=== PATIENT | male | born 1955 | race Caucasian/White ===

== ENCOUNTER 2024-03-13 12:28 | Emergency (ER) | payer OTHER, SELFPAY ==
[~2024-03-13 12:28] MED LIST: Iopamidol 300 61% 100 ML VIAL FS ONE
[2024-03-13 13:23] LABS: #Basophils 0.07 10x3/uL (0.0-0.2); #Eosinophils 0.02 10x3/uL (0.0-0.5); #Neutrophils 5.69 10x3/uL (1.5-8.4); %Basophils 0.9 % (0.0-2.0); %Eosinophils 0.3 % (0.0-6.0); %Lymphocytes 17.9 % (18.0-47.0); %Monocytes 6.5 % (0.0-10.0); %Neutrophils 74.1 % (40.0-75.0); Hematocrit 50.9 % (38.8-50.0); Mean Corpuscular HGB CONC 33.4 g/dL (32.0-36.0); Mean Corpuscular Hemoglobin 33.6 pg (27.0-33.0); Mean Corpuscular Volume 100.6 fL (81.2-95.1); Mean Platelet Volume 8.9 fL (7.4-10.4); Platelet Count 242 10x3/uL (150-450); RBC Distribution Width 14.1 % (11.5-14.5); Red Blood Cell (RBC) Count 5.06 10x6/uL (4.32-5.72); White Blood Cell (WBC) Count 7.7 10x3/uL (3.5-10.5)
[2024-03-13 13:39] LABS: ALT (SGPT) 22 U/L (8-55); AST (SGOT) 22 U/L (5-34); Albumin 3.2 g/dL (3.4-4.8); Alkaline Phosphatase 59 U/L (40-110); Anion Gap 17 mmol/L (10-20); BUN (Urea Nitrogen) 18 mg/dL (8.4-25.7); Bilirubin, Total 0.6 mg/dL (0.2-1.2); Calc. Creatinine Clearance 0 mL/min (70-130); Calcium 9.7 mg/dL (7.8-10.44); Carbon Dioxide 26 mmol/L (23-31); Chloride 103 mmol/L (98-107); Estimated GFR 71; Globulin 4.6 g/dL (2.4-3.5); Glucose 203 mg/dL (80-115); Potassium 4.4 mmol/L (3.5-5.1); Protein, Total 7.8 g/dL (5.8-8.1); Sodium 142 mmol/L (136-145)
[2024-03-13] MEDS ORDERED: Etomidate 40 MG (20 mL) VIAL ONE (14:35)
[2024-03-13] MEDS ORDERED: Ketamine 50 MG/ML (10ML VIAL) ONE (15:08)
[2024-03-13] MEDS ORDERED: Piperacillin/Tazobactam 4.5 GM VIAL ONE (16:58)
[2024-03-13 17:44] LABS: Troponin I 0.021 ng/mL (< 0.028)
[2024-03-13] MEDS ORDERED: Ipratropium/Albuterol 3 ML NEB ONE (20:25)
[2024-03-13] MEDS ORDERED: methylPREDNISolone Sod Succ/PF 125 MG/2 ML VIAL ONE (20:26)
[2024-03-13] MEDS ORDERED: Magnesium 2 GM/50 ML BAG (IN WATER) ONE (20:26)
[2024-03-13] MEDS ORDERED: hydrALAZINE 20 MG/ML VIAL ONE (22:18)
[2024-03-14 03:00] LABS: Actual Bicarbonate (HCO3v) 25.9 mEq/L (22-28); Analyzer IN Cardio CS ER; Base Excess 1.3 mEq/L (-2 - +2); Calcium, Ionized (venous) 1.05 mmol/L (1.16-1.32); Chloride (VBG) 103 mmol/L (98-106); Critical Notified By: CP.PH; Hematocrit-VBG 54 % (42.0-52.0); Hemoglobin (Hb) 18.3 g/dL (12.6-17.4); Potassium (VBG) 4.43 mmol/L (3.70-5.30); Puncture Site Other Site; Sodium 143 mmol/L (133-146); pH (venous) 7.417 (7.32-7.43)
== END 2024-03-14 01:06 | disposition short-term general hospital (02) ==
LOC: CSHERS 12:28
DX: J96.91 Respiratory failure, unspecified with hypoxia (principal); H53.8 Other visual disturbances; R13.10 Dysphagia, unspecified; I10 Essential (primary) hypertension
CPT/HCPCS: 36415; 70491; 71045; 71260; 80053; 82805; 83605; 83880; 84443; 84484; 85025; 86141; 87040; 93005; 94640; 94660; 94760; 94799; J0360; J2543; J2919; J3475; J7620; Q9967